=== PATIENT | male | born 1990 | race Hispanic/Latino ===

== ENCOUNTER → 2025-08-08 | Day surgery (SDC) | payer OTHER ==
[~2025-08-08] MED LIST: AZSTARYS PO; HYOSCYAMINE SULFATE 0.5 MG/ML INJ ONE; LACTATED RINGER'S 1,000 ML ONE; LIDOCAINE HCL 2% LOCAL INJ 5 ML SDV VIAL INJ ONE; PROPOFOL IV EMULSION 10 MG/ML 20 ML VIAL ONE; PROPOFOL IV EMULSION 50 ML IV ONE; PROZAC10 MG PO; ZESTRIL10 MG PO
[2025-08-08 13:45] VITALS: TEMP 97.4
[2025-08-08 14:15] VITALS: BP 138/97; PULSE 101; RESP 15; O2SAT 97
[2025-08-08 15:57] LABS: CDIFF AG QUIK CHEK NEGATIVE (NEGATIVE); CDIFF TOX QUIK CHEK NEGATIVE (NEGATIVE)
== END | disposition home or self-care (01) ==
LOC: OR 09:56
PROVIDERS: ATTEND Internal Medicine Gastroenterology
DX: D12.3 Benign neoplasm of transverse colon (principal); K63.5 Polyp of colon; K62.89 Other specified diseases of anus and rectum; K52.9 Noninfective gastroenteritis and colitis, unspecified; K64.8 Other hemorrhoids; K21.9 Gastro-esophageal reflux disease without esophagitis; I10 Essential (primary) hypertension; G47.33 Obstructive sleep apnea (adult) (pediatric); F17.290 Nicotine dependence, other tobacco product, uncomplicated; G89.29 Other chronic pain; F90.9 Attention-deficit hyperactivity disorder, unspecified type; E66.813 Obesity, class 3; Z68.42 Body mass index [BMI] 45.0-49.9, adult; Z79.899 Other long term (current) drug therapy; Z01.810 Encounter for preprocedural cardiovascular examination
CPT/HCPCS: 45378; 45380; 45385; 83630; 83993; 87177; 87324; 87328; 87449; 93005; J1980; J2003